=== PATIENT | male | born 1985 | race Caucasian/White ===

== ENCOUNTER → 2017-03-20 | Outpatient (CLI) | payer SELFPAY ==
[~2017-03-20] MED LIST: PREDNISONE20 M1 PO
== END | disposition home or self-care (01) ==
LOC: RAD 12:05
DX: S92.901A Unspecified fracture of right foot, initial encounter for closed fracture (principal); S90.31XA Contusion of right foot, initial encounter; X58.XXXA Exposure to other specified factors, initial encounter; Y93.89 Activity, other specified; Y92.89 Other specified places as the place of occurrence of the external cause; Y99.8 Other external cause status

== ENCOUNTER 2022-06-08 14:58 | Emergency (ER) | payer SELFPAY ==
[~2022-06-08] VITALS: Ht 170.1 cm; Wt 68.0 kg
== END 2022-06-08 15:42 | disposition left against medical advice (07) ==
LOC: ED 14:58
DX: T40.1X1A Poisoning by heroin, accidental (unintentional), initial encounter (principal); Y92.89 Other specified places as the place of occurrence of the external cause

== ENCOUNTER 2024-07-24 08:05 | Emergency (ER) | payer SELFPAY ==
[~2024-07-24] VITALS: Ht 170.1 cm; Wt 63.5 kg
[2024-07-24] MEDS ORDERED: Acetaminophen/Oxycodone 5 MG/325 MG TABLET PO ONE (10:55)
[2024-07-24] MEDS ORDERED: PERCOCET 5-3251 EACH PO (12:53)
== END 2024-07-24 13:08 | disposition home or self-care (01) ==
LOC: ED 08:05
DX: S42.022A Displaced fracture of shaft of left clavicle, initial encounter for closed fracture (principal); R07.81 Pleurodynia; M79.671 Pain in right foot; F32.A Depression, unspecified; X58.XXXA Exposure to other specified factors, initial encounter; Y93.89 Activity, other specified; Y92.239 Unspecified place in hospital as the place of occurrence of the external cause; Y99.0 Civilian activity done for income or pay